=== PATIENT | female | born 1955 | race Caucasian/White ===

== ENCOUNTER 2017-11-05 11:48 | Emergency (ER) | END 2017-11-05 13:26 | disposition home or self-care (01) ==

== ENCOUNTER 2017-12-10 12:21 | Emergency (ER) | END 2017-12-10 13:57 | disposition home or self-care (01) ==

== ENCOUNTER 2017-12-14 09:29 | Emergency (ER) | END 2017-12-14 10:39 | disposition home or self-care (01) ==